=== PATIENT | male | born 1980 | race Caucasian/White ===

== ENCOUNTER 2016-10-27 18:52 | Emergency (ER) | payer MEDICAID ==
[2016-10-27 20:32] LABS: CALCIUM 7.6 mg/dL (8.5-10.1); CARBON DIOXIDE 27.6 mmol/L (21-32); CHLORIDE SERUM 103 mmol/L (98-107); CREATININE SERUM 0.7 mg/dL (0.7-1.3); GFR1 > 60 mL/min; GLUCOSE SERUM 130 mg/dL (74-106); POTASSIUM SERUM 4.9 mmol/L (3.5-5.1); SODIUM SERUM 138 mmol/L (136-145)
[2016-10-27 20:33] LABS: PLATELET COUNT 311 x10^3mcL (130-400)
[2016-10-27 20:34] LABS: RED CELL DISTRIBUTION WIDTH 16.3 % (11.5-14.5)
[2016-10-27 20:37] LABS: ALKALINE PHOSPHATASE 391 U/L (46-116); BILIRUBIN TOTAL 2.04 mg/dL (0.20-1.00); LIPASE 223 IU/L (73-393); TOTAL PROTEIN, SERUM 6.5 g/dL (6.4-8.2)
[2016-10-27 20:38] LABS: ALBUMIN 2.4 g/dL (3.4-5.0)
[2016-10-27 21:01] LABS: BAND NEUTROPHIL 3 % (0-10); BASOPHIL 0 % (0-2); MONOCYTE 8 % (0-7); SEGMENTED NEUTROPHILS 63 % (37-75)
[2016-10-27 21:21] LABS: rbc morphology (normal/abnorm) ABNORMAL (NORMAL)
[2016-10-27 21:23] LABS: target cell (codocyte) 1+
[2016-10-27 21:50] LABS: ALT/SGPT 108 U/L (16-63); AST/SGOT 231 U/L (15-37)
[2016-10-27 22:31] LABS: CHOLESTEROL 430 mg/dL (<200); HDL CHOLESTEROL 20 mg/dL (40-60); TRIGLYCERIDES 1216 mg/dL (<150)
[2016-10-28 00:17] VITALS: BP 114/66
== END 2016-10-28 00:17 | disposition home or self-care (01) ==
LOC: ED 18:52
PROVIDERS: Emergency Medicine
DX: K29.21 Alcoholic gastritis with bleeding (principal); K70.10 Alcoholic hepatitis without ascites; E78.1 Pure hyperglyceridemia; F17.200 Nicotine dependence, unspecified, uncomplicated
CPT/HCPCS: C9113; J2270; J2405; J7030

== ENCOUNTER 2017-10-20 00:43 | Emergency (ER) | payer SELFPAY ==
[2017-10-20 01:47] VITALS: BP 115/69
== END 2017-10-20 01:47 | disposition home or self-care (01) ==
LOC: ED 00:43
DX: K05.00 Acute gingivitis, plaque induced (principal)

== ENCOUNTER 2018-05-15 16:39 | Emergency (ER) | payer SELFPAY ==
[~2018-05-15] VITALS: Ht 162.6 cm; Wt 56.2 kg
[2018-05-15 16:58] VITALS: BP 128/70; Ht 162.6 cm; Wt 56.2 kg
== END 2018-05-15 18:25 | disposition home or self-care (01) ==
LOC: ED 16:39
DX: S52.501A Unspecified fracture of the lower end of right radius, initial encounter for closed fracture (principal); E78.00 Pure hypercholesterolemia, unspecified; W19.XXXA Unspecified fall, initial encounter; Y93.89 Activity, other specified; Y92.091 Bathroom in other non-institutional residence as the place of occurrence of the external cause; Y99.8 Other external cause status